=== PATIENT | female | born 1945 | race Two or more races ===

== ENCOUNTER 2017-04-16 11:56 | Outpatient (CLI) | payer OTHER | END 2017-04-16 15:39 | disposition home or self-care (01) | LOC: SONOGRAMA 11:56 | DX: E04.2 Nontoxic multinodular goiter (principal) ==

== ENCOUNTER 2017-05-28 09:44 | Outpatient (CLI) | payer OTHER | END 2017-05-28 09:51 | disposition home or self-care (01) | LOC: SONOGRAMA 09:44 → MAMO-SONO 10:15 | DX: N95.1 Menopausal and female climacteric states (principal); R10.84 Generalized abdominal pain ==

== ENCOUNTER 2017-05-31 12:57 | Outpatient (CLI) | payer OTHER | END 2017-05-31 13:06 | disposition home or self-care (01) | LOC: NUCLEAR 12:57 | DX: M81.0 Age-related osteoporosis without current pathological fracture (principal) ==

== ENCOUNTER 2017-08-10 11:25 | Outpatient (CLI) | payer OTHER | END 2017-08-10 11:26 | disposition home or self-care (01) | LOC: RAD 11:25 | DX: R10.84 Generalized abdominal pain (principal); Z01.818 Encounter for other preprocedural examination ==

== ENCOUNTER 2017-08-27 05:50 | Day surgery (SDC) | payer OTHER ==
[~2017-08-27 05:50] MED LIST: GABAPENTIN400 MG; INDERAL LA80 MG PO; LOZOL PO; NORVASC2.5 MG PO
== END 2017-08-27 10:35 | disposition home or self-care (01) ==
LOC: CIR.AMB 05:50
DX: N84.0 Polyp of corpus uteri (principal); N95.0 Postmenopausal bleeding

== ENCOUNTER 2018-04-21 07:54 | Outpatient (CLI) | payer OTHER | END 2018-04-21 17:00 | disposition home or self-care (01) | LOC: SONOGRAMA 07:54 → MAMO-SONO 08:45 → SONOGRAMA 17:00 → MAMO-SONO 04-28 08:45 | DX: E04.2 Nontoxic multinodular goiter (principal) ==

== ENCOUNTER 2019-10-23 15:19 | Outpatient (CLI) | payer OTHER | END 2019-10-23 15:26 | disposition home or self-care (01) | LOC: RAD 15:19 | PROVIDERS: ATTEND Orthopaedic Surgery | DX: M25.562 Pain in left knee (principal); M25.561 Pain in right knee ==

== ENCOUNTER 2019-12-08 15:03 | Outpatient (CLI) | payer OTHER | END 2019-12-08 15:14 | disposition home or self-care (01) | LOC: SONOGRAMA 15:03 | PROVIDERS: ATTEND Obstetrics & Gynecology | DX: R10.2 Pelvic and perineal pain (principal); R10.84 Generalized abdominal pain; N85.01 Benign endometrial hyperplasia; N92.1 Excessive and frequent menstruation with irregular cycle ==

== ENCOUNTER 2020-06-12 10:58 | Outpatient (CLI) | payer OTHER | END 2020-06-12 11:07 | disposition home or self-care (01) | LOC: SONOGRAMA 10:58 | PROVIDERS: ATTEND Internal Medicine Endocrinology, Diabetes & Metabolism | DX: E04.2 Nontoxic multinodular goiter (principal) ==

== ENCOUNTER 2020-07-23 07:26 | Outpatient (CLI) | payer OTHER | END 2020-07-23 07:27 | disposition home or self-care (01) | LOC: NUCLEAR 07:26 | PROVIDERS: ATTEND Internal Medicine Cardiovascular Disease | DX: I20.9 Angina pectoris, unspecified (principal); R07.89 Other chest pain | CPT/HCPCS: 78452; 93017; A9500; J0153 ==

== ENCOUNTER 2021-03-20 10:46 | Outpatient (CLI) | payer OTHER | END 2021-03-20 10:47 | disposition home or self-care (01) | LOC: NUCLEAR 10:46 | PROVIDERS: ATTEND Internal Medicine Endocrinology, Diabetes & Metabolism | DX: E04.2 Nontoxic multinodular goiter (principal) ==

== ENCOUNTER 2021-05-30 09:00 | Outpatient (CLI) | payer OTHER | END 2021-05-30 09:09 | disposition home or self-care (01) | LOC: SONOGRAMA 09:00 | PROVIDERS: ATTEND Internal Medicine Endocrinology, Diabetes & Metabolism | DX: E04.2 Nontoxic multinodular goiter (principal) ==

== ENCOUNTER → 2021-10-03 | Outpatient (CLI) | payer OTHER | END | disposition home or self-care (01) | LOC: RAD 10:10 | DX: S23.41XA Sprain of ribs, initial encounter (principal); S80.02XA Contusion of left knee, initial encounter; S40.012A Contusion of left shoulder, initial encounter ==

== ENCOUNTER → 2021-10-16 | Outpatient (CLI) | payer OTHER | END | disposition home or self-care (01) | LOC: SONOGRAMA 14:08 | PROVIDERS: ATTEND Pathology Anatomic Pathology & Clinical Pathology | DX: D34 Benign neoplasm of thyroid gland (principal); E04.9 Nontoxic goiter, unspecified; E04.2 Nontoxic multinodular goiter ==

== ENCOUNTER 2022-07-14 09:56 | Outpatient (CLI) | payer OTHER | END 2022-07-14 10:31 | disposition home or self-care (01) | LOC: NUCLEAR 09:56 | PROVIDERS: ATTEND Internal Medicine Cardiovascular Disease | DX: I82.409 Acute embolism and thrombosis of unspecified deep veins of unspecified lower extremity (principal) ==

== ENCOUNTER 2024-11-03 07:09 | Outpatient (CLI) | payer OTHER | END 2024-11-03 07:10 | disposition home or self-care (01) | LOC: NUCLEAR 07:09 | PROVIDERS: ATTEND Internal Medicine Cardiovascular Disease | DX: I20.9 Angina pectoris, unspecified (principal) | CPT/HCPCS: 78452; 93017; A9500 ==